=== PATIENT | female | born 1945 | race Caucasian/White ===

== ENCOUNTER 2017-03-23 14:33 | Inpatient (IN) | payer OTHER ==
[~2017-03-23] VITALS: Ht 165.1 cm; Wt 73.0 kg
[2017-03-23] MEDS ORDERED: VANCOMYCIN INJ 1,000 MG in SODIUM CHLORIDE 0.9% 250ML 250 ML IV STA (16:41)
[2017-03-23] MEDS ORDERED: CEFTRIAXONE SOD INJ 1 GM ADDVIAL IV STA (16:41)
[2017-03-23] MEDS ORDERED: MISCCAP80 PO (16:54)
[2017-03-23] MEDS ORDERED: TRAZ50TA35 PO (16:54)
[2017-03-23] MEDS ORDERED: FENO1TAB24 PO (16:54)
[2017-03-23] MEDS ORDERED: METO1TAB71 PO (16:54)
[2017-03-23] MEDS ORDERED: CHOL100027 PO (16:54)
[2017-03-23] MEDS ORDERED: LOSA100T65 PO (16:54)
[2017-03-23] MEDS ORDERED: OMEG10007 PO (16:54)
[2017-03-23] MEDS ORDERED: NIFE60TA57 PO (16:54)
[2017-03-23] MEDS ORDERED: EZET10TA63 PO (16:54)
[2017-03-23] MEDS ORDERED: ASPI81TA28 PO (16:54)
[2017-03-23 17:16] LABS: BASO % 0.6 %; BASO ABS # 0.04 K/uL (0-0.2); COMPLETE YES; EOS % 5.4 %; HEMATOCRIT 42.2 % (37-47); LYMPH % 23.8 %; LYMPH ABS # 1.54 K/uL (1.2-3.4); MEAN CELL VOLUME 89.6 fL (80-100); MEAN CORPUSCULAR HEMOGLOBIN 29.7 pg (25-34); MEAN CORPUSCULAR HGB CONC 33.2 g/dl (32-36); MEAN PLATELET VOLUME 9.7 fL (7.4-10.4); MONO % 9.3 %; NEUT % 60.9 %; PLATELET COUNT 408 K/uL (130-400); RED BLOOD COUNT 4.71 M/uL (4.2-5.4); WHITE BLOOD COUNT 6.47 K/uL (4.8-10.8)
[2017-03-23 17:25] LABS: PARTIAL THROMBOPLASTIN RATIO 1.1; PROTHROMBIN TIME (PATIENT) 10.4 SECONDS (9.0-12.0)
[2017-03-23 17:37] LABS: ALT/SGPT 22 U/L (12-78); BLOOD UREA NITROGEN 14 mg/dl (7-18); BUN/CREATININE RATIO 10.8 (10-20); C-REACTIVE PROTEIN 1.71 mg/dl (0-0.29); CALCIUM 9.8 mg/dl (8.5-10.1); CARBON DIOXIDE 28 mmol/L (21-32); CHLORIDE 105 mmol/L (98-107); GLUCOSE 97 mg/dl (70-99); POTASSIUM 3.9 mmol/L (3.5-5.1); SODIUM 139 mmol/L (136-145)
[2017-03-23 17:42] LABS: ALKALINE PHOSPHATASE 67 U/L (45-117); AST/SGOT 14 U/L (15-37)
--- NOTE | 2017-03-23 17:45 | DIAGNOSTIC IMAGING REPORT ---
CHEST ONE VIEW PORTABLE CLINICAL HISTORY: Fever. Sepsis. COMPARISON STUDY: No previous studies for comparison. FINDINGS: Lung volumes are normal. There is no consolidation to suggest pneumonia. Pulmonary vascularity is normal. Cardiomediastinal silhouette is normal. There is no pneumothorax or pleural effusion. IMPRESSION: No acute cardiopulmonary findings. Electronically signed by: Melo Vargas M.D. 03/23/2017 5:43 PM Dictated Date/Time: 03/23/2017 5:43 PM
--- NOTE | 2017-03-23 17:53 | DIAGNOSTIC IMAGING REPORT ---
LEFT FOOT MIN 3 VIEWS ROUTINE CLINICAL HISTORY: Foot infection. Evaluate for evidence of osteomyelitis. COMPARISON: None FINDINGS: There is hallux valgus deformity. 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 Evaluation of the toes is difficult given chronic deformity. Sensitivity for detection of osteomyelitis within the toes is significantly diminished on this examination. No acute fracture is identified. There is a 3 mm linear radiodensity which projects over the plantar aspect of the third toe at the level the proximal phalanx. Soft tissue swelling of the plantar aspect of the left foot is noted. IMPRESSION: 1. Decreased sensitivity for detection of osteomyelitis given chronic deformity of the toes. No definite bony destruction. 2. 3 mm linear radiodensity within the plantar soft tissues of the left third toe at the level of the proximal phalanx which likely reflects a foreign body. 3. Marked soft tissue swelling of the plantar aspect of the left forefoot. Electronically signed by: Melo Vargas M.D. 03/23/2017 5:52 PM Dictated Date/Time: 03/23/2017 5:48 PM
[2017-03-23] MEDS ORDERED: ONDANSETRON INJ 2 MG/ML 2 ML VIAL IV PRN (19:00)
[2017-03-23] MEDS ORDERED: ACETAMINOPHEN 325 MG TAB PO PRN (19:00)
--- NOTE | 2017-03-23 19:21 | EMERGENCY ROOM VISIT NOTE ---
History Report prepared by Siobhan: Davida Preciado Under the Supervision of: Dr. Harris Farias D.O. First contact with patient: 16:34 Chief Complaint: WOUND INFECTION Stated Complaint: INFECTED ULCER ON LEFT FOOT Nursing Triage Summary: Left foot with wound per the patient. History of Present Illness The patient is a 71 year old female who presents to the Emergency Room with complaints of a worsened infection to her left foot that initially began in 2012 , but worsened over the last few weeks. She currently rates her discomfort as a 5/10 in severity. The patient states that she has a history of diabetes and has been dealing with an ulcer to her foot since 2012. 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 The patient states that she was evaluated today and sent to the emergency department for possible IV antibiotics. She states that over the past five days she has noticed pus-like drainage and erythema. The patient states that she was on Keflex for her infection, but denies any relief of her symptoms. The patient states that she has had previous x-rays that showed no infection in the bone. She denies any fever. The patient reports a history of a left foot cellulitis in 2011. Source of History: patient Onset: 2012, worsened within last few weeks Position: foot (left) Symptom Intensity: 5/10 Quality: other (wound infection) Timing: worsening, other (persistent) Associated Symptoms: No fevers Note: Associated Symptoms: erythema, pus-like drainage Review of Systems See HPI for pertinent positives & negatives. A total of 10 systems reviewed and were otherwise negative. Past Medical & Surgical Medical Problems: (1) Cellulitis of left foot (2) CKD (chronic kidney disease), stage III (3) DM (diabetes mellitus) (4) HLD (hyperlipidemia) (5) HTN (hypertension) Surgical Problems: (1) H/O tooth extraction (2) History of cataract surgery Family History No pertinent family history stated. Social History Smoking Status: Former Smoker Marital Status: Housing Status: lives with significant other Occupation Status: retired Current/Historical Medications Scheduled Aspirin (Aspirin Ec), 81 MG PO DAILY Cholecalciferol (Vitamin D 1000 Unit), 1,000 INTER.UNIT PO DAILY Ezetimibe (Zetia), 10 MG PO HS Fenofibrate (Fenofibrate), 145 MG PO QPM Fish Oil ([place]-3), 1 CAP PO DAILY Losartan Potassium (Cozaar), 100 MG PO QAM Metoprolol Succinate (Toprolxl (Toprol-Xl), 200 MG PO QAM Nifedipine Ext Rel (Procardia Xl Ext Rel), 60 MG PO QPM Probiotic Product (Probiotic), 1 CAP PO DAILY Trazodone Hcl (Trazodone), 25-50 MG PO HS Allergies Coded Allergies: Nitroglycerin (Unverified Adverse Reaction, Severe, BLACK OUT/BOTTOM OUT BP, 03/23/17) Physical Exam Vital Signs Date Time Temp Pulse Resp B/P (MAP) Pulse Ox O2 Delivery O2 Flow Rate FiO2 03/23/17 18:14 55 18 120/56 96 Room Air 03/23/17 17:11 55 03/23/17 17:06 53 18 151/62 98 Room Air 03/23/17 14:39 36.9 58 20 144/62 95 Room Air Physical Exam CONSTITUTIONAL/VITAL SIGNS: Reviewed / noted above. GENERAL: Non-toxic in appearance. INTEGUMENTARY: Warm, dry, and [place]. HEAD: Normocephalic. EYES: without scleral icterus or trauma. ENT/OROPHARYNX: clear and moist. LYMPHADENOPATHY/NECK: Is supple without lymphadenopathy or meningismus. RESPIRATORY: Lungs clear and equal. CARDIOVASCULAR: Regular rate and rhythm. GI/ABDOMEN: Soft and nontender. No organomegaly or pulsatile mass. No rebound or guarding. Normal bowel sounds. EXTREMITIES: Erythema to the dorsal aspect of the foot, erythema to the anterior portion of the plantar aspect of the foot, quarter sized ulcer in the mid MTP joint area that expresses some bubbles when squeezed. BACK: No CVA tenderness. NEUROLOGICAL: Intact without focal deficits. PSYCHIATRIC: normal affect. MUSCULOSKELETAL: Normally developed with good muscle tone. Medical Decision & Procedures ER Provider Diagnostic Interpretation: Radiology results as stated below per my review and radiologist interpretation: CHEST ONE VIEW PORTABLE CLINICAL HISTORY: Fever. Sepsis. COMPARISON STUDY: No previous studies for comparison. FINDINGS: Lung volumes are normal. There is no consolidation to suggest pneumonia. Pulmonary vascularity is normal. Cardiomediastinal silhouette is normal. There is no pneumothorax or pleural effusion. IMPRESSION: No acute cardiopulmonary findings. Electronically signed by: Melo Vargas M.D. 03/23/2017 5:43 PM Dictated Date/Time: 03/23/2017 5:43 PM LEFT FOOT MIN 3 VIEWS ROUTINE CLINICAL HISTORY: Foot infection. Evaluate for evidence of osteomyelitis. COMPARISON: None FINDINGS: There is hallux valgus deformity. 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 Evaluation of the toes is difficult given chronic deformity. Sensitivity for detection of osteomyelitis within the toes is significantly diminished on this examination. No acute fracture is identified. There is a 3 mm linear radiodensity which projects over the plantar aspect of the third toe at the level the proximal phalanx. Soft tissue swelling of the plantar aspect of the left foot is noted. IMPRESSION: 1. Decreased sensitivity for detection of osteomyelitis given chronic deformity of the toes. No definite bony destruction. 2. 3 mm linear radiodensity within the plantar soft tissues of the left third toe at the level of the proximal phalanx which likely reflects a foreign body. 3. Marked soft tissue swelling of the plantar aspect of the left forefoot. Electronically signed by: Melo Vargas M.D. 03/23/2017 5:52 PM Dictated Date/Time: 03/23/2017 5:48 PM Laboratory Results 03/23/17 17:05 Red Blood Count 4.71, Mean Corpuscular Volume 89.6, Mean Corpuscular Hemoglobin 29.7, Mean Corpuscular Hemoglobin Concent 33.2, Mean Platelet Volume 9.7, Neutrophils (%) (Auto) 60.9, Lymphocytes (%) (Auto) 23.8, Monocytes (%) (Auto) 9.3, Eosinophils (%) (Auto) 5.4, Basophils (%) (Auto) 0.6, Neutrophils # (Auto) 3.94, Lymphocytes # (Auto) 1.54, Monocytes # (Auto) 0.60, Eosinophils # (Auto) 0.35, Basophils # (Auto) 0.04 03/23/17 17:05 Test 03/23/17 17:05 White Blood Count 6.47 K/uL (4.8-10.8) Red Blood Count 4.71 M/uL (4.2-5.4) Hemoglobin 14.0 g/dL (12.0-16.0) Hematocrit 42.2 % (37-47) Mean Corpuscular Volume 89.6 fL (80-100) Mean Corpuscular Hemoglobin 29.7 pg (25-34) Mean Corpuscular Hemoglobin Concent 33.2 g/dl (32-36) Platelet Count 408 K/uL (130-400) Mean Platelet Volume 9.7 fL (7.4-10.4) Neutrophils (%) (Auto) 60.9 % Lymphocytes (%) (Auto) 23.8 % Monocytes (%) (Auto) 9.3 % Eosinophils (%) (Auto) 5.4 % Basophils (%) (Auto) 0.6 % Neutrophils # (Auto) 3.94 K/uL (1.4-6.5) Lymphocytes # (Auto) 1.54 K/uL (1.2-3.4) Monocytes # (Auto) 0.60 K/uL (0.11-0.59) Eosinophils # (Auto) 0.35 K/uL (0-0.5) Basophils # (Auto) 0.04 K/uL (0-0.2) RDW Standard Deviation 40.1 fL (36.4-46.3) RDW Coefficient of Variation 12.2 % (11.5-14.5) Immature Granulocyte % (Auto) 0.0 % Immature Granulocyte # (Auto) 0.00 K/uL (0.00-0.02) Erythrocyte Sedimentation Rate 32 mm/hr (0-21) Prothrombin Time 10.4 SECONDS (9.0-12.0) Prothromb Time International Ratio 1.0 (0.9-1.1) Activated Partial Thromboplast Time 27.4 SECONDS (21.0-31.0) Partial Thromboplastin Ratio 1.1 Anion Gap 6.0 mmol/L (3-11) Est Creatinine Clear Calc Drug Dose 39.2 ml/min Estimated GFR () 47.5 Estimated GFR (Non- 41.0 BUN/Creatinine Ratio 10.8 (10-20) Calcium Level 9.8 mg/dl (8.5-10.1) Total Bilirubin 0.4 mg/dl (0.2-1) Direct Bilirubin 0.1 mg/dl (0-0.2) Aspartate Amino Transf (AST/SGOT) 14 U/L (15-37) Alanine Aminotransferase (ALT/SGPT) 22 U/L (12-78) Alkaline Phosphatase 67 U/L (45-117) Troponin I < 0.015 ng/ml (0-0.045) C-Reactive Protein 1.71 mg/dl (0-0.29) Total Protein 8.0 gm/dl (6.4-8.2) Albumin 3.7 gm/dl (3.4-5.0) Laboratory results as stated above per my review. Medications Administered Medications (Trade) Dose Ordered Sig/Christos Route Start Time Stop Time Status Last Admin Dose Admin Ceftriaxone Sodium (Rocephin Inj) 1 gm NOW STAT IV 03/23/17 16:41 03/23/17 16:45 DC 03/23/17 17:11 1 GM Vancomycin HCl 1000 mg/Sodium Chloride 270 ml @ 125 mls/hr NOW STAT IV 03/23/17 16:41 03/23/17 18:50 DC 03/23/17 17:41 125 MLS/HR ED Course 1636: Previous medical records were reviewed. The patient was evaluated in room A4B. A complete history and physical examination was performed. 164: Ordered Vancomycin HCl 1000 mg/Sodium Chloride 270 ml @ 125 mls/hr IV, Rocephin Inj 1 gm IV. 1822: I discussed the patients case with Jonas Evans. He will evaluate the patient for further treatment. 1830: I reevaluated the patient and she is resting comfortably. I discussed the exam findings with her and I discussed the treatment plan. She verbalized complete understanding and agreement. She is going to be evaluated for further treatment. Medical Decision Differential diagnosis: Etiologies such as cellulitis, abscess, MRSA infection, DVT, necrotizing fasciitis, dermatitis, drug eruption, as well as others were entertained. Medication Reconciliation: I attest that I have personally reviewed the patient' s current medication list. Patient was found to have a slightly elevated blood pressure due to circumstances. I do not believe that the patient requires hypertension monitoring. This is a 71-year-old female who presents to the ED with a chief complaint of left foot infection. The patient has been followed by podiatry. She has a chronic left foot ulcer since about 2012. The patient states that she developed redness in her foot up over the past 5 days. She has been started on Keflex several days ago. Despite this, there is increasing redness and swelling and discomfort. She has had. A discharge from the ulcer on the bottom of her left foot. The patient was seen by Dr. Russell from infectious disease today. She was sent here for IV antibiotics due to failed outpatient therapy. Her CBC is normal, sedimentation rate and CRP are elevated. Complete metabolic panel was unremarkable. The patient was treated with IV Rocephin and IV vancomycin. She will be seen by the hospitalist for further inpatient evaluation and care. Consults Time Called: 1810 Consulting Physician: Jonas Evans Returned Call: 1821 I discussed the patients case with Jonas Evans. He will evaluate the patient for further treatment. Impression Primary Impression: Cellulitis of left foot Scribe Attestation The scribe's documentation has been prepared under my direction and personally reviewed by me in its entirety. I confirm that the note above accurately reflects all work, treatment, procedures, and medical decision making performed by me. Departure Information Dispostion Being Evaluated By Hospitalist Referrals Joseph Babb M.D. (PCP)
--- NOTE | 2017-03-23 19:30 | History and Physical ---
History & Physical Date & Time of Service: Mar 23, 2017 ~ 18:45 Chief Complaint: Infected Ulcer On Left Foot Primary Care Physician: Joseph Babb M.D. History of Present Illness 71 year old female who presents to the ER with an infected diabetic ulcer on her left foot. Patient reports she has had a chronic wound on the bottom on her left foot for the past few years from stepping on a nail. 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 She has been on several rounds of Keflex without improvement in the wound. MRI done on 02/03 was negative for osteomyelitis. She reports increased purulent drainage, redness, swelling, and pain. Patient denies fever and chills. She reports occasional nausea without vomiting, abdominal pain, or diarrhea. She denies chest pain and shortness of breath. No lightheadedness, dizziness, diaphoresis, or syncopal events. She denies any urinary symptoms. Patient was referred to ID today for evaluation who referred her to the ER. In the ER, patient's labs are unremarkable. Vitals are stable. Foot XR does not show any definite osteomyelitis. She was given IV Vanco and Rocephin. Past Medical/Surgical History Medical Problems: (1) Cellulitis of left foot Status: Resolved (2) CKD (chronic kidney disease), stage III Status: Chronic (3) DM (diabetes mellitus) Status: Chronic (4) HLD (hyperlipidemia) Status: Chronic (5) HTN (hypertension) Status: Chronic Surgical Problems: (1) H/O tooth extraction Status: Chronic (2) History of cataract surgery Status: Chronic Family History FH: breast cancer SISTER FH: lung cancer FATHER Social History Smoking Status: Former Smoker Alcohol Use: none Housing status: lives with family Allergies Coded Allergies: Nitroglycerin (Verified Adverse Reaction, Severe, BLACK OUT/BOTTOM OUT BP , 03/23/17) Home Medications Scheduled Aspirin (Aspirin Ec), 81 MG PO DAILY Cholecalciferol (Vitamin D 1000 Unit), 1,000 INTER.UNIT PO DAILY Ezetimibe (Zetia), 10 MG PO HS Fenofibrate (Fenofibrate), 145 MG PO QPM Fish Oil ([place]-3), 1 CAP PO DAILY Losartan Potassium (Cozaar), 100 MG PO QAM Metoprolol Succinate (Toprolxl (Toprol-Xl), 200 MG PO QAM Nifedipine Ext Rel (Procardia Xl Ext Rel), 60 MG PO QPM Probiotic Product (Probiotic), 1 CAP PO DAILY Trazodone Hcl (Trazodone), 25-50 MG PO HS Review of Systems ROS per HPI, all other systems reviewed and negative Physical Exam Vital Signs Date Time Temp Pulse Resp B/P (MAP) Pulse Ox O2 Delivery O2 Flow Rate FiO2 03/23/17 18:14 55 18 120/56 96 Room Air 03/23/17 17:11 55 03/23/17 17:06 53 18 151/62 98 Room Air 03/23/17 14:39 36.9 58 20 144/62 95 Room Air General Appearance: no apparent distress Head: normocephalic Eyes: normal inspection ENT: hearing grossly normal Neck: supple, no JVD Respiratory/Chest: lungs clear, normal breath sounds, no respiratory distress Cardiovascular: regular rate, rhythm, no edema, normal peripheral pulses Abdomen/GI: normal bowel sounds, non tender, soft Extremities/Musculoskelatal: normal inspection, no calf tenderness Neurologic/Psych: no motor/sensory deficits, alert, normal mood/affect, oriented x 3 Skin: + pertinent finding (ulcer noted on plantar surface of left foot near the 2nd metatarsal, no significant drainage noted, + surrounding erythema and edema ) Diagnostics Laboratory Results Results Past 24 Hours Test 03/23/17 17:05 Range/Units White Blood Count 6.47 4.8-10.8 K/uL Red Blood Count 4.71 4.2-5.4 M/uL Hemoglobin 14.0 12.0-16.0 g/dL Hematocrit 42.2 37-47 % Mean Corpuscular Volume 89.6 80-100 fL Mean Corpuscular Hemoglobin 29.7 25-34 pg Mean Corpuscular Hemoglobin Concent 33.2 32-36 g/dl Platelet Count 408 130-400 K/uL Mean Platelet Volume 9.7 7.4-10.4 fL Neutrophils (%) (Auto) 60.9 % Lymphocytes (%) (Auto) 23.8 % Monocytes (%) (Auto) 9.3 % Eosinophils (%) (Auto) 5.4 % Basophils (%) (Auto) 0.6 % Neutrophils # (Auto) 3.94 1.4-6.5 K/uL Lymphocytes # (Auto) 1.54 1.2-3.4 K/uL Monocytes # (Auto) 0.60 0.11-0.59 K/uL Eosinophils # (Auto) 0.35 0-0.5 K/uL Basophils # (Auto) 0.04 0-0.2 K/uL RDW Standard Deviation 40.1 36.4-46.3 fL RDW Coefficient of Variation 12.2 11.5-14.5 % Immature Granulocyte % (Auto) 0.0 % Immature Granulocyte # (Auto) 0.00 0.00-0.02 K/uL Erythrocyte Sedimentation Rate 32 0-21 mm/hr Prothrombin Time 10.4 9.0-12.0 SECONDS Prothromb Time International Ratio 1.0 0.9-1.1 Activated Partial Thromboplast Time 27.4 21.0-31.0 SECONDS Partial Thromboplastin Ratio 1.1 Sodium Level 139 136-145 mmol/L Potassium Level 3.9 3.5-5.1 mmol/L Chloride Level 105 98-107 mmol/L Carbon Dioxide Level 28 21-32 mmol/L Anion Gap 6.0 3-11 mmol/L Blood Urea Nitrogen 14 7-18 mg/dl Creatinine 1.30 0.60-1.20 mg/dl Est Creatinine Clear Calc Drug Dose 39.2 ml/min Estimated GFR () 47.5 Estimated GFR (Non- 41.0 BUN/Creatinine Ratio 10.8 10-20 Random Glucose 97 70-99 mg/dl Calcium Level 9.8 8.5-10.1 mg/dl Total Bilirubin 0.4 0.2-1 mg/dl Direct Bilirubin 0.1 0-0.2 mg/dl Aspartate Amino Transf (AST/SGOT) 14 15-37 U/L Alanine Aminotransferase (ALT/SGPT) 22 12-78 U/L Alkaline Phosphatase 67 45-117 U/L Troponin I < 0.015 0-0.045 ng/ml C-Reactive Protein 1.71 0-0.29 mg/dl Total Protein 8.0 6.4-8.2 gm/dl Albumin 3.7 3.4-5.0 gm/dl Diagnostic Radiology CXR IMPRESSION: No acute cardiopulmonary findings. LEFT FOOT XR IMPRESSION: 1. Decreased sensitivity for detection of osteomyelitis given chronic deformity of the toes. No definite bony destruction. 2. 3 mm linear radiodensity within the plantar soft tissues of the left third toe at the level of the proximal phalanx which likely reflects a foreign body. 3. Marked soft tissue swelling of the plantar aspect of the left forefoot. Impression Assessment and Plan INFECTED LEFT FOOT DIABETIC ULCER - admit to med/surg - patient presenting with increased drainage, redness, edema, and pain to chronic left foot ulcer - has been on Keflex for the past several weeks as an outpatient - MRI done on 02/03 negative for osteomyelitis - afebrile, no leukocytosis; no signs of sepsis - s/p Vanco and Rocephin in the ED - will continue with Vanco and Zosyn - follow cultures - ID and wound care consults - consider repeating MRI however with abnormal renal function, may need to be done without contrast; will hydrate over night and reevaluate renal function in AM DM - hgb a1c 6.5 02/2017 - recently taken off oral agents and controlling with diet - check BSGs and provide SSI if needed HTN - BP controlled - continue metoprolol, nifedipine, and losartan CKD STAGE III - baseline creat runs in the low 1's - creat noted to be 1.3 today - continue to monitor, avoid nephrotoxic agents when able HLD - continue Zetia and fenofibrate ? 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 Rasheed's discussion with the patient. DISPO - In my clinical judgment this beneficiary meets acute admission criteria, established by [facility], that includes being hospitalized through two midnights. ATTENDING ADDENDUM: Agree with the above H&P; please refer to above for more details. Patient was sent from the ID clinic for IV abx due to a worsening ventral left foot ulcer. She states the wound has been there for quite some time and she has been followed by her PCP and Podiatry, but due to persistent non healing she was referred to ID. She also reports being seen in the wound care clinic in [place] previously. No complaints of fever/chills, erythema, or odorous discharge. Cardiac: RR, S1 and S2 auscultated Lungs: CTA B/L MSK: left plantar foot wound of unknown depth, scant white/green discharge NON HEALING DIABETIC FOOT WOUND: -start zosyn + vanco -repeat MRI to determine if osteo present -wound care consult -check HbA1c and control BSGs -neuropathy precautions Level of Care Med/Surg Resuscitation Status DO NOT RESUSCITATE VTE Prophylaxis VTE Risk Assessment Done? Y/N: Yes Risk Level: Moderate Given or contraindicated: Unfractionated heparin SQ
[2017-03-23 20:15] VITALS: BP 116/67; PULSE 51; TEMP 36.8; O2SAT 97
[2017-03-23] MEDS ORDERED: VANCOMYCIN CONSULT ACTIVE PRN (20:15)
[2017-03-23] MEDS ORDERED: PIPERACILL/TAZOBAC CONSULT ACTIVE PRN (20:15)
[2017-03-23] MEDS: SODIUM CHLORIDE 0.9% 1000ML 1,000 ML IV SCH (20:55)
[2017-03-23] MEDS ORDERED: VANCOMYCIN INJ 800 MG in SODIUM CHLORIDE 0.9% 250ML 250 ML IV SCH (21:00)
[2017-03-23] MEDS: NIFEdipine 30 MG CR TAB PO SCH (21:22)
[2017-03-23] MEDS: FENOFIBRATE 145 MG TAB PO SCH (21:22)
[2017-03-23] MEDS: EZETIMIBE 10MG TAB PO SCH (21:23)
[2017-03-23] MEDS: HEPARIN SOD 5000 UNIT/0.5 ML CARP SQ SCH (21:24)
[2017-03-23 21:47] VITALS: BP 116/67; PULSE 51; TEMP 36.8; O2SAT 97; Ht 165.1 cm; Wt 73.0 kg
[2017-03-23] MEDS ORDERED: PIPERACILL/TAZOBAC IV 3.375 GM in DEXTROSE 5% 100ML IV SCH (22:00)
--- NOTE | 2017-03-23 22:09 | Pharmacy Progress Note ---
Pharmacy Abx Initial Consult Date of Service Mar 23, 2017. Pharmacy Dosing Scope Date of Consult: 03/23/17 Consultation requested by: Hiral Orta Pharmacy is consulted to initiate IV Vancomycin/Zosyn dosing therapy, order appropriate labs and adjust drug dose/frequency. Subjective The patient is a 71 year old female admitted on Mar 23, 2017 at 18:55. Objective Height (Feet): 5 Height (Inches): 5.00 Weight (Kilograms): 73.000 Vital Signs (Past 12Hrs) Vital Signs Past 12 Hours Date Time Temp Pulse Resp B/P (MAP) Pulse Ox O2 Delivery O2 Flow Rate FiO2 03/23/17 19:59 55 20 96 Room Air 03/23/17 18:14 55 18 120/56 96 Room Air 03/23/17 17:11 55 03/23/17 17:06 53 18 151/62 98 Room Air 03/23/17 14:39 36.9 58 20 144/62 95 Room Air Lab Results (24Hrs) Laboratory Tests (24 Hours) Test 03/23/17 17:05 C-Reactive Protein 1.71 mg/dl (0-0.29) H Erythrocyte Sedimentation Rate 32 mm/hr (0-21) H White Blood Count 6.47 K/uL (4.8-10.8) Red Blood Count 4.71 M/uL (4.2-5.4) Hemoglobin 14.0 g/dL (12.0-16.0) Hematocrit 42.2 % (37-47) Mean Corpuscular Volume 89.6 fL (80-100) Mean Corpuscular Hemoglobin 29.7 pg (25-34) Mean Corpuscular Hemoglobin Concent 33.2 g/dl (32-36) Platelet Count 408 K/uL (130-400) H Mean Platelet Volume 9.7 fL (7.4-10.4) Neutrophils (%) (Auto) 60.9 % Lymphocytes (%) (Auto) 23.8 % Monocytes (%) (Auto) 9.3 % Eosinophils (%) (Auto) 5.4 % Basophils (%) (Auto) 0.6 % Neutrophils # (Auto) 3.94 K/uL (1.4-6.5) Lymphocytes # (Auto) 1.54 K/uL (1.2-3.4) Monocytes # (Auto) 0.60 K/uL (0.11-0.59) H Eosinophils # (Auto) 0.35 K/uL (0-0.5) Basophils # (Auto) 0.04 K/uL (0-0.2) Micro Results Date/Time Source Procedure Growth Status 03/23/17 20:45 Ulcer Foot Left Gram Stain Pending Received 03/23/17 20:45 Ulcer Foot Left Wound Culture Pending Received Risk Factors for Resistance * Antimicrobial use within the last 90 days (several weeks of keflex) Assessment & Plan Assessment 71 year old female admitted with diabetic ulcer of left foot after failing outpatient treatment with keflex Plan Vancomycin IV * Loading dose: Vancomycin 1800mg IV (25mg/kg admin'd as 1 dose in ER & 1 dose on floor) * Goal trough level: ~15mcg/mL for cellulitis (15-20mcg/mL until final C&S results/osteo ruled out) * Estimated half-life for patient ~18-19hr * Maintenance dose: Vancomycin 1100mg (15mg/kg) IV q18h * Trough level ordered: 03/26/17 0400 dose Piperacillin/tazobactam * 3.375gm bolus administered over 30 minutes, then 3.375gm IV extended infusion every 8 hours for CrCl greater than 20 mL/min Pharmacy will continue to follow and will adjust dose/frequency as necessary. Thank you.
[2017-03-23] MEDS ORDERED: PNEUMOCOCCAL POLYSACCHARIDES 25 MCG/0.5 ML VIAL/SYR IM. ONE (23:15)
[2017-03-23] MEDS ORDERED: PNEUMOCOCCAL ADMINISTRATION CHARGE ONE (23:15)
[2017-03-24 00:13] VITALS: BP 136/66; PULSE 53; TEMP 36.6; O2SAT 96
[2017-03-24] MEDS: PIPERACILL/TAZOBAC IV 3.375 GM in DEXTROSE 5% 100ML IV SCH ×3 (01:53→18:24)
[2017-03-24 06:53] LABS: ESTIMATED AVERAGE GLUCOSE 151 mg/dl; HA1C FLAG Normal (Normal)
[2017-03-24 08:00] VITALS: O2SAT 96
[2017-03-24 08:00] LABS: HEMATOCRIT 40.9 % (37-47); MEAN CELL VOLUME 91.3 fL (80-100); MEAN CORPUSCULAR HEMOGLOBIN 29.7 pg (25-34); MEAN CORPUSCULAR HGB CONC 32.5 g/dl (32-36); MEAN PLATELET VOLUME 9.8 fL (7.4-10.4); PLATELET COUNT 354 K/uL (130-400); RED BLOOD COUNT 4.48 M/uL (4.2-5.4); WHITE BLOOD COUNT 4.11 K/uL (4.8-10.8)
[2017-03-24] MEDS: METOPROLOL SUCC 50MG EXT REL TAB PO SCH (08:00)
[2017-03-24 08:01] VITALS: BP 111/68; PULSE 53; TEMP 36.5; O2SAT 95
[2017-03-24 08:20] LABS: BUN/CREATININE RATIO 10.7 (10-20); CALCIUM 9.3 mg/dl (8.5-10.1); CREATININE 1.3 mg/dl (0.60-1.20); POTASSIUM 4.2 mmol/L (3.5-5.1)
[2017-03-24] MEDS: OMEGA-3 (PURIFIED FISH OIL) 1 GM CAP PO SCH (08:37)
[2017-03-24] MEDS: LACTOBACILLUS ACIDOPHILUS (FLORANEX) TAB PO SCH (08:38)
[2017-03-24] MEDS: CHOLECALCIFEROL 1000 INTER.UNIT TAB PO SCH (08:38)
[2017-03-24] MEDS: ASPIRIN 81 MG ECTAB PO SCH (08:38)
[2017-03-24] MEDS: LOSARTAN POTASSIUM 50 MG TAB PO SCH (08:39)
[2017-03-24 08:44] VITALS: BP 118/56; PULSE 53
[2017-03-24] MEDS: HEPARIN SOD 5000 UNIT/0.5 ML CARP SQ SCH ×2 (08:49→21:46)
--- NOTE | 2017-03-24 14:45 | Medical Consult ---
Consultation Date of Consultation: Mar 24, 2017. Attending Physician: Latoya Rasheed D.O. History of Present Illness pt admitted from ID yesterday secondary to worsening foot infection/cellulitis. was on keflex as outpt with worsening wound. culture done in office and in Er, both with gnr. on vanco and zosyn. x ray in Er without osteo but MRI pending. no f/c, tolerating abx. no abd pain, no n/v/. no cp, cough, sob. all remaining ros reviewed and are negative. Past Medical/Surgical History Medical Problems: (1) Cellulitis of left foot Status: Acute Family History FH: breast cancer SISTER FH: lung cancer FATHER Social History Smoking Status: Former Smoker Alcohol Use: none Marital Status: Housing Status: lives with significant other Occupation Status: retired Allergies Coded Allergies: Nitroglycerin (Verified Adverse Reaction, Severe, BLACK OUT/BOTTOM OUT BP , 03/23/17) Current Inpatient Medications Current Inpatient Medications Medications (Trade) Dose Ordered Sig/Christos Route Start Time Stop Time Status Last Admin Dose Admin Acetaminophen (Tylenol Tab) 650 mg Q4H PRN PO 03/23/17 19:00 04/22/17 18:59 Ondansetron HCl (Zofran Inj) 4 mg Q6H PRN IV 03/23/17 19:00 04/22/17 18:59 Heparin Sodium (Porcine) (Heparin Sq 5000 Unit/0.5ml) 5,000 unit Q12 SQ 03/23/17 21:30 04/22/17 21:29 03/24/17 08:49 5,000 UNIT Sodium Chloride 1,000 ml @ 80 mls/hr [id number] IV 03/23/17 21:00 04/22/17 20:59 03/23/17 20:55 80 MLS/HR Vancomycin HCl (Consult) 1 ea UD PRN N/A 03/23/17 20:15 04/22/17 20:14 Aspirin (Ecotrin Tab) 81 mg DAILY PO 03/24/17 08:00 04/23/17 08:59 03/24/17 08:38 81 MG Cholecalciferol (Vitamin D Tab) 1,000 inter.unit DAILY PO 03/24/17 08:00 04/23/17 08:59 03/24/17 08:38 1,000 INTER.UNIT EZETIMIBE (Zetia Tab) 10 mg HS PO 03/23/17 21:00 04/22/17 20:59 03/23/17 21:23 10 MG Fenofibrate (Tricor Tab) 145 mg QPM PO 03/23/17 21:00 04/22/17 20:59 03/23/17 21:22 145 MG Fish Oil ([place]-3 (Purified Fish Oil) Cap) 1 gm DAILY PO 03/24/17 08:00 04/23/17 08:59 03/24/17 08:37 1 GM Losartan Potassium (coZAAR TAB) 100 mg QAM PO 03/24/17 08:00 04/23/17 08:59 03/24/17 08:39 100 MG Metoprolol Succinate (Toprol Xl Tab) 200 mg QAM PO 03/24/17 08:00 04/23/17 08:59 Nifedipine (Procardia Xl Tab) 60 mg QPM PO 03/23/17 21:00 04/22/17 20:59 03/23/17 21:22 60 MG Lactobacillus Acidophilus (Floranex Tab) 4 tab QAM PO 03/24/17 08:00 04/23/17 07:59 03/24/17 08:38 4 TAB Piperacillin Sod/ Tazobactam Sod (Consult) 1 ea UD PRN N/A 03/23/17 20:15 04/22/17 20:14 Piperacillin Sod/ Tazobactam Sod 3.375 gm/Dextrose 115 ml @ 28.75 mls/ hr Q8H IV 03/24/17 02:00 04/03/17 01:59 03/24/17 01:53 28.75 MLS/HR Vancomycin HCl 1100 mg/Sodium Chloride 272 ml @ 125 mls/hr Q18H IV 03/24/17 16:00 04/03/17 15:59 Physical Exam Date Time Temp Pulse Resp B/P (MAP) Pulse Ox O2 Delivery O2 Flow Rate FiO2 03/24/17 08:44 53 118/56 (76) 03/24/17 08:01 36.5 53 18 111/68 (82) 95 Room Air 03/24/17 08:00 96 Room Air 03/24/17 00:13 36.6 53 18 136/66 (89) 96 Room Air 03/23/17 21:47 36.8 51 18 116/67 97 Room Air 03/23/17 20:15 36.8 51 18 116/67 (83) 97 Room Air 03/23/17 19:59 55 20 96 Room Air 03/23/17 18:14 55 18 120/56 96 Room Air 03/23/17 17:11 55 03/23/17 17:06 53 18 151/62 98 Room Air General Appearance: WD/WN, no apparent distress Head: normocephalic, atraumatic Eyes: normal inspection, EOMI Neck: supple Respiratory/Chest: lungs clear, normal breath sounds, no respiratory distress Cardiovascular: regular rate, rhythm, no edema Abdomen/GI: non tender, soft Extremities/Musculoskelatal: normal inspection, no pedal edema, + pertinent finding (foot wih improve erythema compare to office visit yesterday. no drainage on dressing) Neurologic/Psych: alert, oriented x 3 Skin: normal color, no rash Laboratory Results Item Value Date Time Gram Stain - Final Resulted 03/23/17 0000 Drainage - Surface Foot Left Gram Stain - Final Resulted 03/23/172044 Ulcer Foot Left Gram Stain - Final Resulted 03/23/17 0000 Drainage - Surface Foot Left Gram Stain - Final Resulted 03/23/172044 Ulcer Foot Left Last 24 Hours Test 03/23/17 17:05 03/23/17 20:51 03/24/17 07:21 03/24/17 07:35 White Blood Count 6.47 K/uL 4.11 K/uL Red Blood Count 4.71 M/uL 4.48 M/uL Hemoglobin 14.0 g/dL 13.3 g/dL Hematocrit 42.2 % 40.9 % Mean Corpuscular Volume 89.6 fL 91.3 fL Mean Corpuscular Hemoglobin 29.7 pg 29.7 pg Mean Corpuscular Hemoglobin Concent 33.2 g/dl 32.5 g/dl Platelet Count 408 K/uL 354 K/uL Mean Platelet Volume 9.7 fL 9.8 fL Neutrophils (%) (Auto) 60.9 % Lymphocytes (%) (Auto) 23.8 % Monocytes (%) (Auto) 9.3 % Eosinophils (%) (Auto) 5.4 % Basophils (%) (Auto) 0.6 % Neutrophils # (Auto) 3.94 K/uL Lymphocytes # (Auto) 1.54 K/uL Monocytes # (Auto) 0.60 K/uL Eosinophils # (Auto) 0.35 K/uL Basophils # (Auto) 0.04 K/uL RDW Standard Deviation 40.1 fL 41.5 fL RDW Coefficient of Variation 12.2 % 12.4 % Immature Granulocyte % (Auto) 0.0 % Immature Granulocyte # (Auto) 0.00 K/uL Erythrocyte Sedimentation Rate 32 mm/hr Prothrombin Time 10.4 SECONDS Prothromb Time International Ratio 1.0 Activated Partial Thromboplast Time 27.4 SECONDS Partial Thromboplastin Ratio 1.1 Sodium Level 139 mmol/L 144 mmol/L Potassium Level 3.9 mmol/L 4.2 mmol/L Chloride Level 105 mmol/L 109 mmol/L Carbon Dioxide Level 28 mmol/L 29 mmol/L Anion Gap 6.0 mmol/L 6.0 mmol/L Blood Urea Nitrogen 14 mg/dl 14 mg/dl Creatinine 1.30 mg/dl 1.30 mg/dl Est Creatinine Clear Calc Drug Dose 39.2 ml/min 39.2 ml/min Estimated GFR () 47.5 47.5 Estimated GFR (Non- 41.0 41.0 BUN/Creatinine Ratio 10.8 10.7 Random Glucose 97 mg/dl 90 mg/dl Estimated Average Glucose 151 mg/dl Hemoglobin A1c 6.9 % Calcium Level 9.8 mg/dl 9.3 mg/dl Total Bilirubin 0.4 mg/dl Direct Bilirubin 0.1 mg/dl Aspartate Amino Transf (AST/SGOT) 14 U/L Alanine Aminotransferase (ALT/SGPT) 22 U/L Alkaline Phosphatase 67 U/L Troponin I < 0.015 ng/ml C-Reactive Protein 1.71 mg/dl Total Protein 8.0 gm/dl Albumin 3.7 gm/dl Bedside Glucose 127 mg/dl 91 mg/dl Assessment & Plan (1) Diabetic foot infection Assessment & Plan: continue emperic abx for now, final will depend on culture results. if no gpc tomorrow, will stop vanco. will follow mri peniding. (2) Cellulitis of left foot Status: Acute
[2017-03-24] MEDS: VANCOMYCIN INJ 1,100 MG in SODIUM CHLORIDE 0.9% 250ML 250 ML IV SCH (15:42)
[2017-03-24] MEDS: SODIUM CHLORIDE 0.9% 1000ML 1,000 ML IV SCH ×3 (15:47→21:33)
[2017-03-24 16:09] VITALS: BP 114/64; PULSE 57; TEMP 36.7; O2SAT 97
--- NOTE | 2017-03-24 18:21 | Progress Note ---
Medicine Progress Note Date & Time of Visit: Mar 24, 2017 at 17:59. Subjective Patient denies any complaints, she feels well. She feels no pain in her foot and feels as though the swelling of her feet is better. No overnight events noted. Tolerating PO. Objective Last 8 Hrs Date Time Temp Pulse Resp B/P (MAP) Pulse Ox O2 Delivery O2 Flow Rate FiO2 03/24/17 16:09 36.7 57 18 114/64 (81) 97 Room Air 03/24/17 16:00 Room Air Physical Exam: GENERAL: Patient is in no acute distress. HEENT: No acute trauma, normocephalic, mucous membranes moist, no nasal congestion, no scleral icterus. NECK: No stridor, trachea is midline. LUNGS: Clear to auscultation bilaterally, no wheeze, no rhonchi, breath sounds equal. HEART: Without murmurs gallops or rubs, regular rate and rhythm. ABDOMEN: Soft, nontender, bowel sounds positive EXTREMITIES: No cyanosis or edema; left plantar foot wound with dressing NEUROLOGIC: Oriented x 3, no acute motor or sensory deficits, no focal weakness. SKIN: No rash, no jaundice, no diaphoresis. Laboratory Results: Last 24 Hours Test 03/23/17 20:51 03/24/17 07:21 03/24/17 07:35 03/24/17 10:58 Bedside Glucose 127 mg/dl 91 mg/dl 156 mg/dl White Blood Count 4.11 K/uL Red Blood Count 4.48 M/uL Hemoglobin 13.3 g/dL Hematocrit 40.9 % Mean Corpuscular Volume 91.3 fL Mean Corpuscular Hemoglobin 29.7 pg Mean Corpuscular Hemoglobin Concent 32.5 g/dl RDW Standard Deviation 41.5 fL RDW Coefficient of Variation 12.4 % Platelet Count 354 K/uL Mean Platelet Volume 9.8 fL Sodium Level 144 mmol/L Potassium Level 4.2 mmol/L Chloride Level 109 mmol/L Carbon Dioxide Level 29 mmol/L Anion Gap 6.0 mmol/L Blood Urea Nitrogen 14 mg/dl Creatinine 1.30 mg/dl Est Creatinine Clear Calc Drug Dose 39.2 ml/min Estimated GFR () 47.5 Estimated GFR (Non- 41.0 BUN/Creatinine Ratio 10.7 Random Glucose 90 mg/dl Calcium Level 9.3 mg/dl Date/Time Source Procedure Growth Status 03/23/17 20:45 Ulcer Foot Left Gram Stain - Final Resulted 03/23/17 20:45 Wound Culture - Preliminary Gram Negative Bacilli Resulted Assessment & Plan NONHEALING LEFT FOOT DIABETIC ULCER: -with suspected infection -cultures from ID clinic and ER are pending -presented with increased drainage, redness, edema, and pain to chronic left foot ulcer; improving symptoms -was on Keflex for the past several weeks, failed outpatient treatment and admitted for IV abx -MRI done on 02/03 negative for osteomyelitis; repeat MRI pending due to elevated ESR and worsening wound infection -remains afebrile, no leukocytosis; no signs of sepsis -on Vanco and Zosyn day #2 -ID and wound care consulted; appreciate recommendations -patient had a bedside debridement and packing by wound care today, also to have an orthotic boot fitted for the patient DM Type II: -HbA1c: 6.9% -patient reports being diet controlled; recently taken off oral agents -check BSGs and provide SSI if needed HTN: -controlled -continue metoprolol, nifedipine, and losartan CKD STAGE III: -baseline creat runs in the low 1's -cr 1.3 -continue to monitor -avoid nephrotoxic agents Hyperlipidemia: -continue Zetia and fenofibrate Questionable hx of Atrial Fibrillation: -obtain records from PCP to confirm/deny this -currently not anticoagulated; reports she was on anticoagulation for one month a few years ago but 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 it - patient unsure why, no bleeding issues per history -EKG NSR -continued on metoprolol DVT Prophylaxis: -Heparin subcutaneous Current Inpatient Medications: Current Inpatient Medications Medications (Trade) Dose Ordered Sig/Christos Route Start Time Stop Time Status Last Admin Dose Admin Acetaminophen (Tylenol Tab) 650 mg Q4H PRN PO 03/23/17 19:00 04/22/17 18:59 Ondansetron HCl (Zofran Inj) 4 mg Q6H PRN IV 03/23/17 19:00 04/22/17 18:59 Heparin Sodium (Porcine) (Heparin Sq 5000 Unit/0.5ml) 5,000 unit Q12 SQ 03/23/17 21:30 04/22/17 21:29 03/24/17 08:49 5,000 UNIT Sodium Chloride 1,000 ml @ 80 mls/hr [id number] IV 03/23/17 21:00 04/22/17 20:59 03/24/17 15:48 80 MLS/HR Vancomycin HCl (Consult) 1 ea UD PRN N/A 03/23/17 20:15 04/22/17 20:14 Aspirin (Ecotrin Tab) 81 mg DAILY PO 03/24/17 08:00 04/23/17 08:59 03/24/17 08:38 81 MG Cholecalciferol (Vitamin D Tab) 1,000 inter.unit DAILY PO 03/24/17 08:00 04/23/17 08:59 03/24/17 08:38 1,000 INTER.UNIT EZETIMIBE (Zetia Tab) 10 mg HS PO 03/23/17 21:00 04/22/17 20:59 03/23/17 21:23 10 MG Fenofibrate (Tricor Tab) 145 mg QPM PO 03/23/17 21:00 04/22/17 20:59 03/23/17 21:22 145 MG Fish Oil ([place]-3 (Purified Fish Oil) Cap) 1 gm DAILY PO 03/24/17 08:00 04/23/17 08:59 03/24/17 08:37 1 GM Losartan Potassium (coZAAR TAB) 100 mg QAM PO 03/24/17 08:00 04/23/17 08:59 03/24/17 08:39 100 MG Metoprolol Succinate (Toprol Xl Tab) 200 mg QAM PO 03/24/17 08:00 04/23/17 08:59 Nifedipine (Procardia Xl Tab) 60 mg QPM PO 03/23/17 21:00 04/22/17 20:59 03/23/17 21:22 60 MG Lactobacillus Acidophilus (Floranex Tab) 4 tab QAM PO 03/24/17 08:00 04/23/17 07:59 03/24/17 08:38 4 TAB Piperacillin Sod/ Tazobactam Sod (Consult) 1 ea UD PRN N/A 03/23/17 20:15 04/22/17 20:14 Piperacillin Sod/ Tazobactam Sod 3.375 gm/Dextrose 115 ml @ 28.75 mls/ hr Q8H IV 03/24/17 02:00 04/03/17 01:59 03/24/17 01:53 28.75 MLS/HR Vancomycin HCl 1100 mg/Sodium Chloride 272 ml @ 125 mls/hr Q18H IV 03/24/17 16:00 04/03/17 15:59 03/24/17 15:42 125 MLS/HR
--- NOTE | 2017-03-24 18:34 | DIAGNOSTIC IMAGING REPORT ---
MRI OF THE LEFT FOREFOOT NO CONTRAST CLINICAL HISTORY: Left foot ulcer with possible. Possible osteomyelitis. COMPARISON STUDY: Conventional radiographic study dated 03/23/2017 FINDINGS: There is a hallux valgus deformity. There are moderate degenerative changes the level of the first metatarsal phalangeal joint. There is a soft tissue ulceration at the level of the second metatarsal head. There are foci of decreased T1 and T2 signal at this level, possibly representing air bubbles or metallic artifact. There is extensive T2 edema at this level. There are no fluid collections to indicate a drainable abscess. There is T2 marrow edema involving the second metatarsal head consistent with a reactive osteitis. There is no T1 marrow edema to indicate acute osteomyelitis. IMPRESSION: 1. No evidence of acute osteomyelitis 2. Reactive osteitis involving the second metatarsal head 3. No evidence of drainable abscess 4. Plantar soft tissue ulcer at the level of the second metatarsal head with significant surrounding soft tissue inflammatory edema. Electronically signed by: Chivo Caputo M.D. 03/24/2017 6:32 PM Dictated Date/Time: 03/24/2017 6:27 PM
[2017-03-24] MEDS: NIFEdipine 30 MG CR TAB PO SCH (21:31)
[2017-03-24] MEDS: EZETIMIBE 10MG TAB PO SCH (21:32)
[2017-03-24] MEDS: FENOFIBRATE 145 MG TAB PO SCH (21:32)
[2017-03-24 23:13] VITALS: BP 132/60; PULSE 51; TEMP 36.6; O2SAT 97
[2017-03-25] MEDS: PIPERACILL/TAZOBAC IV 3.375 GM in DEXTROSE 5% 100ML IV SCH ×2 (01:32→10:29)
[2017-03-25] MEDS: ASPIRIN 81 MG ECTAB PO SCH (07:56)
[2017-03-25] MEDS: METOPROLOL SUCC 50MG EXT REL TAB PO SCH (07:56)
[2017-03-25] MEDS: OMEGA-3 (PURIFIED FISH OIL) 1 GM CAP PO SCH (07:56)
[2017-03-25] MEDS: LACTOBACILLUS ACIDOPHILUS (FLORANEX) TAB PO SCH (07:57)
[2017-03-25] MEDS: LOSARTAN POTASSIUM 50 MG TAB PO SCH (07:57)
[2017-03-25] MEDS: CHOLECALCIFEROL 1000 INTER.UNIT TAB PO SCH (07:57)
[2017-03-25] MEDS: HEPARIN SOD 5000 UNIT/0.5 ML CARP SQ SCH ×2 (08:05→21:43)
[2017-03-25 08:28] VITALS: BP 127/69; PULSE 59; TEMP 36.6; O2SAT 95
[2017-03-25 09:30] LABS: CREATININE 1.3 mg/dl (0.60-1.20)
--- NOTE | 2017-03-25 10:08 | Wound Clinic H&P ---
History & Physical Wound Clinic Date of Service: Mar 24, 2017. Complaint: Nonhealing ulcer left foot Primary Care Physician: Joseph Babb M.D. History of Present Illness Patient states she has had an ulcer at this site oral and off for the past 4 years. Patient states has been opening drainage over the past 3 weeks. Patient denies any significant pain. Patient states there was redness and swelling of the foot. Patient denies any fever chills or night sweats. Patient states she has had this taken care of by podiatry and at one point had some orthotic shoes for this problem. Patient currently denies any chest pain shortness of breath abdominal discomfort nausea or vomiting. Patient denies any other systemic complaints. Medical History (1) Cellulitis of left foot (2) Diabetic foot infection (3) DM (diabetes mellitus) (4) HTN (hypertension) (5) HLD (hyperlipidemia) (6) CKD (chronic kidney disease), stage III (7) History of cataract surgery (8) H/O tooth extraction Surgical History Hx Abdominal Surgery: No Hx Cardiac Surgery: No Hx Urinary Tract Surgery: No Hx Orthopedic: No Social History Occupation: retired Smoking Status: Former Smoker Alcohol Use: none Current Medications Scheduled Aspirin (Aspirin Ec), 81 MG PO DAILY Cholecalciferol (Vitamin D 1000 Unit), 1,000 INTER.UNIT PO DAILY Ezetimibe (Zetia), 10 MG PO HS Fenofibrate (Fenofibrate), 145 MG PO QPM Fish Oil ([place]-3), 1 CAP PO DAILY Losartan Potassium (Cozaar), 100 MG PO QAM Metoprolol Succinate (Toprolxl (Toprol-Xl), 200 MG PO QAM Nifedipine Ext Rel (Procardia Xl Ext Rel), 60 MG PO QPM Probiotic Product (Probiotic), 1 CAP PO DAILY Trazodone Hcl (Trazodone), 25-50 MG PO HS Allergies Coded Allergies: Nitroglycerin (Verified Adverse Reaction, Severe, BLACK OUT/BOTTOM OUT BP , 03/23/17) Review of Systems 10 systems were reviewed in their entirety and positive findings were noted in HPI. Physical Exam Vital Signs: Last Vital Signs Documentation Date Time Temp Pulse Resp B/P (MAP) Pulse Ox O2 Delivery O2 Flow Rate FiO2 03/25/17 08:28 36.6 59 18 127/69 (88) 95 Room Air General: The patient is sitting in a hospital bed in no distress. Alert, cooperative and appropriate to all questions. HEENT: Pupils equal and reactive to light. Sclera clear, EOM intact. Neck: Supple, No JVD noted Chest: CTA in all [place]. No deformity Heart: RRR without murmurs, S3, S4, thrills, rubs or heaves Extremities: There is an ulceration noted on the plantar surface of the left foot over the third metatarsal head. Surrounding undermined skin and callus formation is noted. Some central sluffing is present. Following debridement of the site measures 0.8 x 1 x 1.5 cm. Initial undermining was 1.1 cm at 8:00, 0.8 cm at 10:00, and 0.5 cm at 12 3:00. Positive deformity is noted in the foot area. Pulses are present. Patient is neuropathic. Neurological: Alert and oriented x3. No focal deficits. Skin: No rashes, papules, vesicles, excoriations Diagnostic Radiology Results were reviewed Assessment 1.: [place] grade 2 diabetic foot ulcer left foot Plan At this time the site did require debridement. With patient's permission and after the application of topical Xylocaine 4% site was debridement with a #5 curette. Surrounding undermined skin central sluffing sub-subcutaneous tissue was removed. The ulcerative site did probe to bone. The patient states that she had a recent MRI 1 month ago and this will be reviewed. The site will be dressed with aqua cell AG and gauze change daily. Orthotics will be consult for offloading purposes. Orthotics will be consult for offloading purposes.This represents an excisional debridement of less than 20 sq. cm.
[2017-03-25] MEDS: VANCOMYCIN INJ 1,100 MG in SODIUM CHLORIDE 0.9% 250ML 250 ML IV SCH (10:29)
[2017-03-25] MEDS: SODIUM CHLORIDE 0.9% 1000ML 1,000 ML IV SCH (10:30)
[2017-03-25] MEDS ORDERED: NURSING VERBAL MED ORDER ONE (10:45)
--- NOTE | 2017-03-25 12:59 | Progress Note ---
Subjective Date of Service: Mar 25, 2017. Subjective MRI without evidence of osteo, no abscess seen, however, wound care eval/ debridement reveal + probe to bone. Culture from ER and ID office with aguirre sensitive Enterobacter. 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 afebrile. tolerating abx, has been on zosyn and vanco. no overnight events. Problem List Medical Problems: (1) Cellulitis of left foot Status: Acute Objective Vital Signs Date Time Temp Pulse Resp B/P (MAP) Pulse Ox O2 Delivery O2 Flow Rate FiO2 03/25/17 08:28 36.6 59 18 127/69 (88) 95 Room Air 03/25/17 08:00 Room Air 03/25/17 00:00 Room Air 03/24/17 23:13 36.6 51 18 132/60 (84) 97 Room Air 03/24/17 16:09 36.7 57 18 114/64 (81) 97 Room Air 03/24/17 16:00 Room Air Laboratory Results Last 24 Hours Test 03/24/17 17:13 03/24/17 20:30 03/25/17 07:40 03/25/17 07:50 Bedside Glucose 100 mg/dl 153 mg/dl 97 mg/dl Creatinine 1.30 mg/dl Est Creatinine Clear Calc Drug Dose 39.2 ml/min Estimated GFR () 47.5 Estimated GFR (Non- 41.0 Assessment and Plan (1) Diabetic foot infection Assessment & Plan: will change to levaquin 500mg po daily, stop IV abx. will need min 4 weeks, although MRI negative, esr mild elevated and wound does probe to bone. will need continued wound care. can follow in office or wound center. ok for d/c when medically stable from ID standpoint. (2) Cellulitis of left foot
[2017-03-25] MEDS: LEVOFLOXACIN 500 MG TAB PO SCH (14:24)
[2017-03-25 14:56] VITALS: BP 132/77; PULSE 57; TEMP 36.8; O2SAT 96
--- NOTE | 2017-03-25 18:03 | Progress Note ---
Medicine Progress Note Date & Time of Visit: Mar 25, 2017 at 18:03. Subjective Patient reports feeling well; she denies any new complaints. She feels her feet are less swollen and less erythematous. She reports feeling increased drainage of her foot wound. She reports being unsure of how to change her wound dressing but does not want home care services. No overnight events noted. Objective Last 8 Hrs Date Time Temp Pulse Resp B/P (MAP) Pulse Ox O2 Delivery O2 Flow Rate FiO2 03/25/17 16:00 Room Air 03/25/17 14:56 36.8 57 18 132/77 (95) 96 Physical Exam: GENERAL: Patient is in no acute distress. HEENT: No acute trauma, normocephalic, mucous membranes moist, no nasal congestion, no scleral icterus. NECK: No stridor, trachea is midline. LUNGS: Clear to auscultation bilaterally, no wheeze, no rhonchi, breath sounds equal. HEART: Without murmurs gallops or rubs, regular rate and rhythm. ABDOMEN: Soft, nontender, bowel sounds positive EXTREMITIES: No cyanosis or edema; left plantar foot wound with dressing NEUROLOGIC: Oriented x 3, no acute motor or sensory deficits, no focal weakness. SKIN: No rash, no jaundice, no diaphoresis. Laboratory Results: Last 24 Hours Test 03/24/17 20:30 03/25/17 07:40 03/25/17 07:50 03/25/17 11:14 Bedside Glucose 153 mg/dl 97 mg/dl 160 mg/dl Creatinine 1.30 mg/dl Est Creatinine Clear Calc Drug Dose 39.2 ml/min Estimated GFR () 47.5 Estimated GFR (Non- 41.0 Test 03/25/17 16:31 Bedside Glucose 110 mg/dl Assessment & Plan NONHEALING LEFT FOOT DIABETIC ULCER: -with suspected infection -cultures from ID clinic and ER are pending -presented with increased drainage, redness, edema, and pain to chronic left foot ulcer; improving symptoms -was on Keflex for the past several weeks, failed outpatient treatment and admitted for IV abx -MRI done on 02/03 negative for osteomyelitis; repeat MRI due to elevated ESR and worsening wound infection shows osteitis but no bony destruction or suggestion of osteomyelitis -remains afebrile, no leukocytosis; no signs of sepsis -on Vanco and Zosyn for 2 days; today was started on levofloxacin per ID -ID and wound care consulted; appreciate recommendations -patient had a bedside debridement and packing by wound care, also to have an orthotic boot fitted for the patient DM Type II: -HbA1c: 6.9% -patient reports being diet controlled; recently taken off oral agents -check BSGs and provide SSI if needed HTN: -controlled -continue metoprolol, nifedipine, and losartan CKD STAGE III: -baseline creat runs in the low 1's -cr 1.3 -continue to monitor -avoid nephrotoxic agents Hyperlipidemia: -continue Zetia and fenofibrate Questionable hx of Atrial Fibrillation: -obtain records from PCP to confirm/deny this -currently not anticoagulated; reports she was on anticoagulation for one month a few years ago but 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 - patient unsure why, no bleeding issues per history -EKG NSR -continued on metoprolol DVT Prophylaxis: -Heparin subcutaneous Current Inpatient Medications: Current Inpatient Medications Medications (Trade) Dose Ordered Sig/Christos Route Start Time Stop Time Status Last Admin Dose Admin Acetaminophen (Tylenol Tab) 650 mg Q4H PRN PO 03/23/17 19:00 04/22/17 18:59 Ondansetron HCl (Zofran Inj) 4 mg Q6H PRN IV 03/23/17 19:00 04/22/17 18:59 Heparin Sodium (Porcine) (Heparin Sq 5000 Unit/0.5ml) 5,000 unit Q12 SQ 03/23/17 21:30 04/22/17 21:29 03/25/17 08:05 5,000 UNIT Aspirin (Ecotrin Tab) 81 mg DAILY PO 03/24/17 08:00 04/23/17 08:59 03/25/17 07:56 81 MG Cholecalciferol (Vitamin D Tab) 1,000 inter.unit DAILY PO 03/24/17 08:00 04/23/17 08:59 03/25/17 07:57 1,000 INTER.UNIT EZETIMIBE (Zetia Tab) 10 mg HS PO 03/23/17 21:00 04/22/17 20:59 03/24/17 21:32 10 MG Fenofibrate (Tricor Tab) 145 mg QPM PO 03/23/17 21:00 04/22/17 20:59 03/24/17 21:32 145 MG Fish Oil ([place]-3 (Purified Fish Oil) Cap) 1 gm DAILY PO 03/24/17 08:00 04/23/17 08:59 03/25/17 07:56 1 GM Losartan Potassium (coZAAR TAB) 100 mg QAM PO 03/24/17 08:00 04/23/17 08:59 03/25/17 07:57 100 MG Metoprolol Succinate (Toprol Xl Tab) 200 mg QAM PO 03/24/17 08:00 04/23/17 08:59 Nifedipine (Procardia Xl Tab) 60 mg QPM PO 03/23/17 21:00 04/22/17 20:59 03/24/17 21:31 60 MG Lactobacillus Acidophilus (Floranex Tab) 4 tab QAM PO 03/24/17 08:00 04/23/17 07:59 03/25/17 07:57 4 TAB Levofloxacin (Levaquin Tab) 500 mg DAILY@11 PO 03/25/17 14:00 05/06/17 13:59 03/25/17 14:24 500 MG
[2017-03-25] MEDS: NIFEdipine 30 MG CR TAB PO SCH (21:41)
[2017-03-25] MEDS: FENOFIBRATE 145 MG TAB PO SCH (21:41)
[2017-03-25] MEDS: EZETIMIBE 10MG TAB PO SCH (21:42)
[2017-03-25 21:48] VITALS: BP 154/74; PULSE 58
[2017-03-26 00:37] VITALS: BP 135/73; PULSE 54; TEMP 36.8; O2SAT 96
[2017-03-26] MEDS ORDERED: VANCOMYCIN TROUGH SCH (03:30)
[2017-03-26 07:00] VITALS: BP 131/75; PULSE 64; TEMP 36.7; O2SAT 96
[2017-03-26 07:27] LABS: HEMATOCRIT 39.2 % (37-47); MEAN CORPUSCULAR HEMOGLOBIN 30.2 pg (25-34); MEAN CORPUSCULAR HGB CONC 33.2 g/dl (32-36); MEAN PLATELET VOLUME 9.7 fL (7.4-10.4); PLATELET COUNT 326 K/uL (130-400); RED BLOOD COUNT 4.31 M/uL (4.2-5.4); WHITE BLOOD COUNT 4.11 K/uL (4.8-10.8)
[2017-03-26] MEDS: LACTOBACILLUS ACIDOPHILUS (FLORANEX) TAB PO SCH (07:37)
[2017-03-26] MEDS: OMEGA-3 (PURIFIED FISH OIL) 1 GM CAP PO SCH (07:37)
[2017-03-26] MEDS: ASPIRIN 81 MG ECTAB PO SCH (07:38)
[2017-03-26] MEDS: METOPROLOL SUCC 50MG EXT REL TAB PO SCH (07:38)
[2017-03-26] MEDS: CHOLECALCIFEROL 1000 INTER.UNIT TAB PO SCH (07:38)
[2017-03-26] MEDS: LOSARTAN POTASSIUM 50 MG TAB PO SCH (07:40)
[2017-03-26] MEDS ORDERED: NURSING DECISION MEDICATION ORDER SCH (07:45)
[2017-03-26] MEDS ORDERED: NURSING VERBAL MED ORDER ONE (07:45)
[2017-03-26] MEDS: HEPARIN SOD 5000 UNIT/0.5 ML CARP SQ SCH (07:47)
[2017-03-26 08:01] LABS: CREATININE 1.2 mg/dl (0.60-1.20)
[2017-03-26] MEDS ORDERED: LVQ500 PO (09:21)
--- NOTE | 2017-03-26 09:25 | Discharge Instructions ---
Discharge Instructions Date of Service Mar 26, 2017. Admission Reason for Admission: Foot Ulcer, Left Discharge Discharge Diagnosis / Problem: Left foot ulcer; wound culture with Enterobacter cloacae Discharge Goals Goal(s): Therapeutic intervention Activity Recommendations Activity Limitations: as noted below Avoid direct pressure on your foot, use your orthotic boot for standing/walking Break activities into smaller tasks whenever possible and take frequent breaks . Instructions / Follow-Up Instructions / Follow-Up Please call Dr. Babb's office and schedule a hospital discharge follow up appointment with her Please call wound care clinic and schedule a follow up appointment Wound care dressing changes as recommended in the wound care instructions Current Hospital Diet Patient's current hospital diet: Diabetes Type 2 Diet Discharge Diet Recommended Diet: Diabetes Type 2 Diet Pending Studies Studies pending at discharge: no Laboratory Results Hemoglobin A1c Test 03/23/17 17:05 Range/Units Estimated Average Glucose 151 mg/dl Hemoglobin A1c 6.9 H 4.5-5.6 % Medical Emergencies . Who to Call and When: Medical Emergencies: If at any time you feel your situation is an emergency, please call 911 immediately. . Non-Emergent Contact Non-Emergency issues call your: Primary Care Provider . . "Provider Documentation" section prepared by Latoya Rasheed. . VTE Core Measure Inpt VTE Proph given/why not?: Unfractionated heparin SQ
--- NOTE | 2017-03-26 09:29 | Discharge Summary ---
Discharge Summary Date of Service Mar 26, 2017. Discharge Summary Admission Date: Mar 23, 2017 at 18:55 Discharge Date: Mar 26, 2017 Discharge Disposition: Home Principal Diagnosis: left foot non healing ulcer, infected foot wound Procedures: MRI left foot Bedside debridement Consultations: ID Wound care Pending Studies/Follow-Up: Wound care clinic follow up Medication Reconciliation New Medications: Levofloxacin (Levofloxacin) 500 Mg Tab 500 MG PO DAILY@11, #28 TAB Continued Medications: Aspirin (Aspirin Ec) 81 Mg Tab 81 MG PO DAILY Cholecalciferol (Vitamin D 1000 Unit) 1,000 Unit Cap 1000 INTER.UNIT PO DAILY, CAP Ezetimibe (Zetia) 10 Mg Tab 10 MG PO HS, TAB Fenofibrate (Fenofibrate) 145 Mg Tab 145 MG PO QPM for 90 Days, TAB 3 Refills Fish Oil ([place]-3) 1 Ea Cap 1 CAP PO DAILY, CAP Losartan Potassium (Cozaar) 100 Mg Tab 100 MG PO QAM, TAB Metoprolol Succinate (Toprolxl (Toprol-Xl) 200 Mg Tabcr 200 MG PO QAM, TAB Nifedipine Ext Rel (Procardia Xl Ext Rel) 60 Mg Tabcr 60 MG PO QPM, TAB Probiotic Product (Probiotic) 1 Cap Cap 1 CAP PO DAILY Trazodone Hcl (Trazodone) 50 Mg Tab 25-50 MG PO HS, TAB Admission Information HPI (per Admitting provider): 71 year old female who presents to the ER with an infected diabetic ulcer on her left foot. Patient reports she has had a chronic wound on the bottom on her left foot for the past few years from stepping on a nail. Patient has been following with her correctional medicine physician for the past several weeks for an acute infection of the ulcer. She has been on several rounds of Keflex without improvement in the wound. MRI done on 02/03 was negative for osteomyelitis. She reports increased purulent drainage, redness, swelling, and pain. Patient denies fever and chills. She reports occasional nausea without vomiting, abdominal pain, or diarrhea. She denies chest pain and shortness of breath. No lightheadedness, dizziness, diaphoresis, or syncopal events. She denies any urinary symptoms. Patient was referred to ID today for evaluation who referred her to the ER. In the ER, patient's labs are unremarkable. Vitals are stable. Foot XR does not show any definite osteomyelitis. She was given IV Vanco and Rocephin. Physical Exam (per Admitting): General Appearance: no apparent distress Head: normocephalic Eyes: normal inspection ENT: hearing grossly normal Neck: supple, no JVD Respiratory/Chest: lungs clear, normal breath sounds, no respiratory distress Cardiovascular: regular rate, rhythm, no edema, normal peripheral pulses Abdomen/GI: normal bowel sounds, non tender, soft Extremities/Musculoskelatal: normal inspection, no calf tenderness Neurologic/Psych: no motor/sensory deficits, alert, normal mood/affect, oriented x 3 Skin: + pertinent finding (ulcer noted on plantar surface of left foot near the 2nd metatarsal, no significant drainage noted, + surrounding erythema and edema ) Hospital Course NONHEALING LEFT FOOT DIABETIC ULCER: -with suspected infection -cultures from ID clinic and ER are growing Enterobacter cloacae -presented with increased drainage, redness, edema, and pain to chronic left foot ulcer; improving symptoms -was on Keflex for the past several weeks, failed outpatient treatment and admitted for IV abx -MRI done on 02/03 negative for osteomyelitis; repeat MRI due to elevated ESR and worsening wound infection shows osteitis but no bony destruction or suggestion of osteomyelitis -remains afebrile, no leukocytosis; no signs of sepsis -on Vanco and Zosyn for 2 days; was then started on levofloxacin PO per ID -ID and wound care consulted; appreciate recommendations -patient had a bedside debridement and packing by wound care, also to use an orthotic boot fitted for the patient DM Type II: -HbA1c: 6.9% -patient reports being diet controlled; recently taken off oral agents -check BSGs HTN: -controlled -continue metoprolol, nifedipine, and losartan CKD STAGE III: -baseline creat runs in the low 1's -cr 1.3 -continue to monitor -avoid nephrotoxic agents Hyperlipidemia: -continue Zetia and fenofibrate Questionable hx of Atrial Fibrillation: -obtain records from PCP to confirm/deny this -currently not anticoagulated; reports she was on anticoagulation for one month a few years ago but the dish network installer stopped it - patient unsure why, no bleeding issues per history -EKG NSR -continued on metoprolol DVT Prophylaxis: -Heparin subcutaneous PHYSICAL EXAM OF DAY OF DISCHARGE: GENERAL: Patient is in no acute distress. HEENT: No acute trauma, normocephalic, mucous membranes moist, no nasal congestion, no scleral icterus. NECK: No stridor, trachea is midline. LUNGS: Clear to auscultation bilaterally, no wheeze, no rhonchi, breath sounds equal. HEART: Without murmurs gallops or rubs, regular rate and rhythm. ABDOMEN: Soft, nontender, bowel sounds positive EXTREMITIES: No cyanosis or edema; left plantar foot wound ulcer with drainage, no surrounding erythema NEUROLOGIC: Oriented x 3, no acute motor or sensory deficits, no focal weakness. SKIN: No rash, no jaundice, no diaphoresis. Total time spent on discharge = 39 This includes examination of the patient, discharge planning, medication reconciliation, and communication with other providers. Discharge Instructions see patient instructions Additional Copies To Joseph Babb M.D.
[2017-03-26 10:14] VITALS: BP 131/75; PULSE 64; TEMP 36.7; O2SAT 96
[2017-03-26] MEDS: LEVOFLOXACIN 500 MG TAB PO SCH (11:02)
[2017-04-06] MEDS ORDERED: FLUC100T4 PO (11:04)
== END 2017-03-26 11:30 | disposition home or self-care (01) | DRG 639 ==
LOC: C.EDB 14:35 → C.MS4W 18:55 → ENRESERV 19:29
PROVIDERS: ADMIT Internal Medicine; ATTEND Internal Medicine
DX: E11.622 Type 2 diabetes mellitus with other skin ulcer (principal); N18.3 Chronic kidney disease, stage 3 (moderate); E78.5 Hyperlipidemia, unspecified; I12.9 Hypertensive chronic kidney disease with stage 1 through stage 4 chronic kidney disease, or unspecified chronic kidney disease; Z87.891 Personal history of nicotine dependence; Z79.82 Long term (current) use of aspirin; E11.621 Type 2 diabetes mellitus with foot ulcer

== ENCOUNTER → 2017-03-23 | Outpatient (CLI) | payer OTHER ==
[~2017-03-23] MED LIST: ASPI81TA28 PO; CHOL100027 PO; EZET10TA63 PO; FENO1TAB24 PO; FLUC100T4 PO; LOSA100T65 PO; LVQ500 PO; METO1TAB71 PO; MISCCAP80 PO; NIFE60TA57 PO; OMEG10007 PO; TRAZ50TA35 PO
== END | disposition home or self-care (01) ==
LOC: C.LABSPEC 15:51
PROVIDERS: ATTEND Internal Medicine Infectious Disease
DX: E11.621 Type 2 diabetes mellitus with foot ulcer (principal)